=== PATIENT | male | born 1955 | race Two or more races ===

== ENCOUNTER 2023-09-02 23:39 | Inpatient (IN) | payer MEDICARE, BC ==
[~2023-09-02] VITALS: Ht 175.3 cm; Wt 81.2 kg
[2023-09-03] MEDS: IV NS 0.9% 1,000 ML IV ONE ×2 (00:30)
[2023-09-03 00:39] LABS: BASOPHILS # (AUTO) 0.1 K/uL (0.0-0.2); BASOPHILS % (AUTO) 0.3 % (0.0-2.0); HEMATOCRIT 35 % (39-51); HEMOGLOBIN 11.7 g/dL (13.5-17.5); LYMPHOCYTES # (AUTO) 0.8 K/uL (0.8-4.8); LYMPHOCYTES % (AUTO) 4.1 % (20.0-44.0); MEAN CORPUSCULAR HEMOGLOBIN 30 PG (26.0-33.0); MEAN CORPUSCULAR HGB CONC 34 g/dl (31.0-36.0); MEAN CORPUSCULAR VOLUME 88 fL (80-96); MONOCYTES # (AUTO) 1.5 K/uL (0.1-1.30); MONOCYTES % (AUTO) 7.8 % (2.0-12.0); NEUTROPHILS # (AUTO) 16.5 K/uL (1.8-8.9); NEUTROPHILS % (AUTO) 87.8 % (43.0-81.0); PLATELET COUNT (AUTO) 183 K/uL (150-450); RED BLOOD CELL COUNT(AUTO) 3.98 MIL/uL (4.5-6.0); RED CELL DISTRIBUTION WIDTH 13.9 % (11.5-15.0); WHITE BLOOD COUNT (AUTO) 18.8 K/uL (4.3-11.0)
[2023-09-03 01:08] LABS: CALCIUM, SERUM 8.8 mg/dL (8.5-10.1); CARBON DIOXIDE 22 mmol/L (21-32); CHLORIDE 98 mmol/L (98-107); CREATININE 1.9 mg/dL (0.6-1.3); GLUCOSE 127 mg/dL (74-106); POTASSIUM 3.8 mmol/L (3.5-5.1); SODIUM SERUM 131 mmol/L (136-145); UREA NITROGEN, BLOOD 23 mg/dL (7-18)
[2023-09-03 01:23] LABS: ALANINE AMINOTRANSFERASE 16 U/L (12-78); ALBUMIN 3.3 g/dL (3.4-5.0); ALKALINE PHOSPHATASE 71 U/L (46-116); ASPARTATE AMINOTRANSFERASE 14 U/L (15-37); BILIRUBIN,TOTAL 1.4 mg/dL (0.2-1.0); NT-PRO BNP 1268 pg/mL (0-125); TOTAL PROTEIN, SERUM 6.6 g/dL (6.4-8.2)
[2023-09-03 01:48] LABS: LACTIC ACID 2.8 mmol/L (0.4-2.0)
[2023-09-03 03:17] LABS: APPEARANCE,URINE SLIGHTLY CLOUDY (CLEAR); BILIRUBIN,URINE 1+ (NEGATIVE); BLOOD, URINE 1+ Ery/uL (NEGATIVE); COLOR,URINE YELLOW (YELLOW); KETONES,URINE 2+ mg/dL (NEGATIVE); LEUKOCYTE ESTERASE ,URINE 2+ (NEGATIVE); NITRITE, URINE POSITIVE (NEGATIVE); PROTEIN,URINE TRACE mg/dl (NEGATIVE); UGLUCOSE NEGATIVE (NEGATIVE); UROBILINOGEN,URINE 0.2 EU/dL (0.2)
[2023-09-03 03:40] LABS: ADD URINE CULTURE YES; BACTERIA,URINE 4+ /HPF (None Seen); SQUAMOUS EPITHELIAL CELL,UR None Seen /HPF (None Seen)
[2023-09-03 03:41] LABS: MUCUS,URINE Few /LPF (None Seen)
[2023-09-03 03:59] LABS: BAND % (MANUAL) 10 % (0.0-5.0); LYMPHOCYTES % (MANUAL) 3 % (16-48); MONOCYTES % (MANUAL) 3 % (0-11.0); NEUTROPHILS % (MANUAL) 84 (42-76); PLATELET ESTIMATE ADEQUATE
[2023-09-03 04:00] VITALS: BP 86/50; TEMP 100.4; O2SAT 97
[2023-09-03] MEDS ORDERED: CEFTRIAXONE 1GM BAG (ER ONLY) 50 ML IV ONE (04:13)
[2023-09-03 04:20] LABS: BILIRUBIN,DIRECT 0.3 mg/dL (0.0-0.2)
[2023-09-03 04:28] LABS: LACTIC ACID REFLEX 1.6 mmol/L (0.4-1.9)
[2023-09-03] MEDS: CEFTRIAXONE 1 G in IV D5W 50 ML IV SCH (04:30)
[2023-09-03 06:00] VITALS: BP 86/48; TEMP 100.4; O2SAT 97
[2023-09-03] MEDS ORDERED: ZOLPIDEM TARTRATE 5 MG TABLET PO PRN (06:00)
[2023-09-03] MEDS ORDERED: ONDANSETRON HCL/PF 4 MG/2 ML VIAL IVP PRN (06:00)
[2023-09-03] MEDS ORDERED: Z GUARD REMEDY 4 OZ OINT TP PRN (06:00)
[2023-09-03] MEDS ORDERED: MAG HYDROX/AL HYDROX/SIMETH 30 ML UDC PO PRN (06:00)
[2023-09-03] MEDS ORDERED: MAGNESIUM HYDROXIDE 30 ML UDC PO PRN (06:00)
[2023-09-03] MEDS: IV NS 0.9% 1,000 ML IV PRN (06:29)
[2023-09-03] MEDS: ACETAMINOPHEN 325 MG TABLET PO PRN (06:47)
[2023-09-03] MEDS ORDERED: NEBI5TAB8 PO (07:56)
[2023-09-03 08:00] VITALS: BP 97/49; TEMP 98.4; O2SAT 99
[2023-09-03] MEDS: PANTOPRAZOLE 40 MG TABLET.DR PO SCH (08:47)
[2023-09-03 12:00] VITALS: BP 98/55; TEMP 98.2; O2SAT 96
[2023-09-03] MEDS: DOXYCYCLINE HYCLATE (100 MG) 100 MG TABLET PO SCH (14:06)
[2023-09-03 16:00] VITALS: BP 104/60; TEMP 98.4; O2SAT 99
[2023-09-03] MEDS: CEFTRIAXONE 2 G in IV D5W 100 ML IV SCH (17:01)
[2023-09-03 20:00] VITALS: BP 100/62; TEMP 98.6; O2SAT 97
[2023-09-04] VITALS: BP 103/57; TEMP 97.9; O2SAT 97
[2023-09-04 04:00] VITALS: BP 108/61; TEMP 97.9; O2SAT 97
[2023-09-04 06:50] LABS: BASOPHILS % (AUTO) 0.1 % (0.0-2.0); EOSINOPHILS % (AUTO) 0.1 % (0.0-6.0); HEMATOCRIT 33 % (39-51); HEMOGLOBIN 11.3 g/dL (13.5-17.5); LYMPHOCYTES # (AUTO) 0.7 K/uL (0.8-4.8); LYMPHOCYTES % (AUTO) 4.5 % (20.0-44.0); MEAN CORPUSCULAR HEMOGLOBIN 30 PG (26.0-33.0); MEAN CORPUSCULAR HGB CONC 34 g/dl (31.0-36.0); MEAN CORPUSCULAR VOLUME 86 fL (80-96); MONOCYTES # (AUTO) 0.8 K/uL (0.1-1.30); MONOCYTES % (AUTO) 5.1 % (2.0-12.0); NEUTROPHILS # (AUTO) 13.9 K/uL (1.8-8.9); NEUTROPHILS % (AUTO) 90.2 % (43.0-81.0); PLATELET COUNT (AUTO) 153 K/uL (150-450); RED BLOOD CELL COUNT(AUTO) 3.84 MIL/uL (4.5-6.0); RED CELL DISTRIBUTION WIDTH 13.9 % (11.5-15.0); WHITE BLOOD COUNT (AUTO) 15.4 K/uL (4.3-11.0)
[2023-09-04 07:03] LABS: ALBUMIN 2.4 g/dL (3.4-5.0); BILIRUBIN,TOTAL 0.5 mg/dL (0.2-1.0); CALCIUM, SERUM 8.1 mg/dL (8.5-10.1); CREATININE 1.6 mg/dL (0.6-1.3); MAGNESIUM 1.6 mg/dL (1.8-2.4); PHOSPHORUS 1.9 mg/dL (2.5-4.9); POTASSIUM 3.6 mmol/L (3.5-5.1); TOTAL PROTEIN, SERUM 6.3 g/dL (6.4-8.2)
[2023-09-04 08:00] VITALS: BP 110/69; TEMP 97.7; O2SAT 98
[2023-09-04] MEDS ORDERED: CEFTRIAXONE 1 G in IV D5W 50 ML IV SCH (09:00)
[2023-09-04] MEDS: MAGNESIUM OXIDE 400 MG TABLET PO ONE (11:00)
[2023-09-04 12:00] VITALS: BP 109/72; TEMP 98.6; O2SAT 98
[2023-09-04 16:00] VITALS: BP 122/81; TEMP 98.1; O2SAT 97
[2023-09-04] MEDS: K PHOS NEUTRAL 250 MG TABLET PO ONE (16:48)
[2023-09-04 20:00] VITALS: BP 111/69; TEMP 98.8; O2SAT 98
[2023-09-04] MEDS: LACTULOSE 10 G/15 ML UDC (PYXIS) PO PRN (22:46)
[2023-09-05] VITALS (7 sets, daily range): BP systolic 109–135; BP diastolic 65–79; TEMP 97.3–99; O2SAT 97–99
[2023-09-05 06:38] LABS: BASOPHILS % (AUTO) 0.2 % (0.0-2.0); EOSINOPHILS % (AUTO) 0.1 % (0.0-6.0); HEMATOCRIT 36 % (39-51); HEMOGLOBIN 12.2 g/dL (13.5-17.5); LYMPHOCYTES # (AUTO) 0.7 K/uL (0.8-4.8); LYMPHOCYTES % (AUTO) 5.5 % (20.0-44.0); MEAN CORPUSCULAR HEMOGLOBIN 29 PG (26.0-33.0); MEAN CORPUSCULAR HGB CONC 34 g/dl (31.0-36.0); MEAN CORPUSCULAR VOLUME 85 fL (80-96); MONOCYTES # (AUTO) 0.7 K/uL (0.1-1.30); MONOCYTES % (AUTO) 5.8 % (2.0-12.0); NEUTROPHILS # (AUTO) 10.5 K/uL (1.8-8.9); NEUTROPHILS % (AUTO) 88.4 % (43.0-81.0); PLATELET COUNT (AUTO) 197 K/uL (150-450); RED BLOOD CELL COUNT(AUTO) 4.23 MIL/uL (4.5-6.0); RED CELL DISTRIBUTION WIDTH 14.1 % (11.5-15.0); WHITE BLOOD COUNT (AUTO) 11.9 K/uL (4.3-11.0)
[2023-09-05 07:07] LABS: ALBUMIN 2.9 g/dL (3.4-5.0); BILIRUBIN,TOTAL 0.5 mg/dL (0.2-1.0); CALCIUM, SERUM 8.9 mg/dL (8.5-10.1); CREATININE 1.4 mg/dL (0.6-1.3); MAGNESIUM 1.9 mg/dL (1.8-2.4); PHOSPHORUS 2.3 mg/dL (2.5-4.9); POTASSIUM 3.2 mmol/L (3.5-5.1); TOTAL PROTEIN, SERUM 7.3 g/dL (6.4-8.2)
[2023-09-05 08:11] LABS: PTH, INTACT 74 pg/mL (15-65)
[2023-09-05 11:07] LABS: *SPE A/G RATIO 0.9 (0.7-1.7); *SPE ALBUMIN 2.6 g/dL (2.9-4.4); *SPE ALPHA-1-GLOBULIN 0.5 g/dL (0.0-0.4); *SPE ALPHA-2-GLOBULIN 0.8 g/dL (0.4-1.0); *SPE BETA GLOBULIN 0.7 g/dL (0.7-1.3); *SPE GLOBULIN, TOTAL 2.8 g/dL (2.2-3.9); *SPE M-SPIKE Not Observed g/dL (Not Observed); *SPE PROTEIN TOTAL 5.4 g/dL (6.0-8.5); *SPEGAMMA GLOBULIN 0.8 g/dL (0.4-1.8)
[2023-09-05] MEDS: LIDOCAINE 2% JEL UROJET 10 ML MM ONE (13:37)
[2023-09-05] MEDS ORDERED: MORPHINE SULFATE INJ 2 MG/ML DISP.SYRIN IM PRN (14:30)
[2023-09-05] MEDS: POTASSIUM CHLORIDE 20 MEQ TAB.PRT.SR PO ONE ×2 (15:26→15:29)
[2023-09-05] MEDS: LEVOFLOXACIN 500 MG /D5W 100ML 500 MG in PREMIX 1 EA IV SCH (15:27)
[2023-09-05] MEDS: NEUTRA PHOS 1 POWD.PACKET PO ONE (15:29)
[2023-09-05] MEDS: TAMSULOSIN 0.4 MG CAP.SR.24H PO SCH (21:06)
[2023-09-06] VITALS: BP 119/73; TEMP 99; O2SAT 98
[2023-09-06 04:00] VITALS: BP 109/67; TEMP 99; O2SAT 97
[2023-09-06 07:26] LABS: BASOPHILS % (AUTO) 0.4 % (0.0-2.0); EOSINOPHILS % (AUTO) 0.3 % (0.0-6.0); HEMATOCRIT 37 % (39-51); HEMOGLOBIN 12.5 g/dL (13.5-17.5); LYMPHOCYTES # (AUTO) 0.9 K/uL (0.8-4.8); LYMPHOCYTES % (AUTO) 12.9 % (20.0-44.0); MEAN CORPUSCULAR HEMOGLOBIN 29 PG (26.0-33.0); MEAN CORPUSCULAR HGB CONC 34 g/dl (31.0-36.0); MEAN CORPUSCULAR VOLUME 86 fL (80-96); MONOCYTES # (AUTO) 0.8 K/uL (0.1-1.30); MONOCYTES % (AUTO) 10.9 % (2.0-12.0); NEUTROPHILS # (AUTO) 5.5 K/uL (1.8-8.9); NEUTROPHILS % (AUTO) 75.5 % (43.0-81.0); PLATELET COUNT (AUTO) 211 K/uL (150-450); RED BLOOD CELL COUNT(AUTO) 4.31 MIL/uL (4.5-6.0); WHITE BLOOD COUNT (AUTO) 7.3 K/uL (4.3-11.0)
[2023-09-06 08:00] VITALS: BP 124/75; TEMP 99; O2SAT 97
[2023-09-06 08:37] LABS: CALCIUM, SERUM 10.3 mg/dL (8.5-10.1); MAGNESIUM 2.1 mg/dL (1.8-2.4); PHOSPHORUS 2.4 mg/dL (2.5-4.9); POTASSIUM 4.1 mmol/L (3.5-5.1)
[2023-09-06 08:44] LABS: CREATININE 1.4 mg/dL (0.6-1.3)
[2023-09-06 12:00] VITALS: BP 124/75; TEMP 99; O2SAT 97
[2023-09-06] MEDS ORDERED: TAMS-12 PO (15:50)
[2023-09-06 16:00] VITALS: BP 126/75; TEMP 99; O2SAT 97
[2023-09-06] MEDS: K PHOS NEUTRAL 250 MG TABLET PO ONE (16:53)
[2023-09-06] MEDS ORDERED: LEVO500T90 PO (19:31)
== END 2023-09-06 18:41 | disposition home or self-care (01) | DRG 872 ==
LOC: ER 23:47 → TELE1 09-03 03:07 → MEDSG1 09-06 08:52
PROVIDERS: ATTEND Nurse Practitioner Family
DX: A41.9 Sepsis, unspecified organism (principal); N41.0 Acute prostatitis; N17.9 Acute kidney failure, unspecified; E87.1 Hypo-osmolality and hyponatremia; N13.8 Other obstructive and reflux uropathy; N39.0 Urinary tract infection, site not specified; Z88.1 Allergy status to other antibiotic agents; I10 Essential (primary) hypertension; D64.9 Anemia, unspecified; E86.1 Hypovolemia; E87.6 Hypokalemia; M89.8X9 Other specified disorders of bone, unspecified site; N28.1 Cyst of kidney, acquired; B96.20 Unspecified Escherichia coli [E. coli] as the cause of diseases classified elsewhere; N40.1 Benign prostatic hyperplasia with lower urinary tract symptoms; N41.1 Chronic prostatitis; R91.8 Other nonspecific abnormal finding of lung field; N39.498 Other specified urinary incontinence; N13.9 Obstructive and reflux uropathy, unspecified
CPT/HCPCS: 36415; 71045-TC; 71250-TC; 76770-TC; 80048-TC; 80053-TC; 81001; 82248-TC; 82550-TC; 82553; 83605-TC; 83735-TC; 83880; 83970; 84100-TC; 84155; 84165; 84484-TC; 85025-TC; 87040-TC; 87086-TC; 93307-TC; A4216; A4223; G0378; J0696; J1956; J3490; J7030; J7060